=== PATIENT | female | born 1975 | race Caucasian/White ===

== ENCOUNTER → 2019-08-11 11:06 | Outpatient (CLI) | payer BC, SELFPAY ==
--- NOTE | ~2019-08-11 | MM_ITS ---
EXAMINATION: MM screening maeve BI w rozina HISTORY: Screening mammogram TECHNIQUE: Craniocaudal and mediolateral oblique 3-D tomosynthesis images were obtained and synthetic 2-D images were generated. CAD analysis was submitted and interpreted. COMPARISON: 07/05/2018 diagnostic right digital mammogram and limited right breast ultrasound 06/17/2018, 05/12/2017 bilateral digital screening mammogram examinations BREAST PARENCHYMAL COMPOSITION: There are scattered areas of fibroglandular density. FINDINGS: There is no evidence of suspicious mass, calcification, or architectural distortion to sugg est malignancy in either breast. There has been no suspicious interval change. IMPRESSION: 1. No mammographic evidence of malignancy. 2. Recommend routine screening mammography in one year. BI-RADS Category 1: Negative Reviewed, dictated and finalized at location A. 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
== END ==
PROVIDERS: PCP Physician Assistant; Visit Provider Nurse Practitioner
DX: Z12.31 Encounter for screening mammogram for malignant neoplasm of breast (principal)
CPT/HCPCS: 77063; 77067

== ENCOUNTER 2019-12-21 13:01 | Outpatient (CLI) | payer BC, SELFPAY ==
--- NOTE | ~2019-12-21 | XR_ITS ---
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 The procedure including the risks, benefits, and alternatives was discussed with the pat ient. Risks discussed included bleeding and infection. The patient understood the risks and agreed to proceed. The skin overlying the dorsal aspect of the right second tarsometatarsal joint joint was p repped and draped in usual sterile fashion. Anesthetic was administered with 1% lidocaine subcutaneo usly. A 22 G needle was advanced under fluoroscopic guidance into the joint. Injection of 0.4 mL of Omnipaque 240 confirmed intra-articular position of the needle. Subsequently, injectate consisting of 1 mL of a 40 mg/mL mixture of Kenalog for a total dose of 40 mg Kenalog was instilled. Washout of contrast was seen confirming intra-articular administration. The needle was removed and the entry sit e was cleaned and dressed. There were no immediate complications. Fluoroscopy exposure time was 0.5 minutes. The total number of images was 2. FINDINGS: Real-time fluoroscopy demonstrates the needle in the right second tarsal metatarsal joint. The injected contrast delineates communication between the second tarsal metatarsal joints and the mo re lateral tarsal metatarsal joints as well as into the navicular cuneiform joint the joint space bet ween the medial mid cuneiforms. Patient's pain prior to procedure:3/10. Patient's pain following the procedure: 3/10. IMPRESSION: 1. Accessory right second tarsal metatarsal joint steroid injection. Reviewed, dictated and finalized at location A.
== END 2019-12-21 13:02 | disposition home or self-care (01) ==
LOC: ANHIMG 13:06
PROVIDERS: PCP Physician Assistant; Visit Provider Podiatrist Foot & Ankle Surgery
DX: M19.071 Primary osteoarthritis, right ankle and foot (principal)
CPT/HCPCS: 20605; 77002; J3301; Q9966

== ENCOUNTER 2020-06-06 10:54 | Outpatient (CLI) | payer BC, SELFPAY ==
--- NOTE | ~2020-06-06 | XR_ITS ---
EXAMINATION: XR md joint inject/asp w image DATE: 06/06/2020 11:57 INDICATION: Right foot arthritis and pain TECHNIQUE: A time-out was performed to verify the patient's name, date of , and procedure to b e performed. The procedure including the risks, benefits, and alternatives was discussed with the pat ient. Risks discussed included bleeding and infection. The patient understood the risks and agreed to proceed. The skin overlying the dorsal midfoot was prepped and draped in usual sterile fashion. An esthetic was administered with 1% lidocaine subcutaneously. A 25 G needle was advanced under fluoros copic guidance into the joint. Injection of 0.3 mL of Omnipaque 240 confirmed intra-articular positi on of the needle. Subsequently 1 mL of 40 mg/mL Kenalog was instilled for a total dosage of 40 mg Ke nalog. Washout of contrast was seen confirming intra-articular administration. The needle was removed and the entry site was cleaned and dressed. There were no immediate complications. Fluoroscopy expo sure time was 0.3 minutes. The total number of images was 4. FINDINGS: Real-time fluoroscopy demonstrates the needle in the right second tarsal metatarsal joint. There appears to be communication with the first and third tarsal metatarsal joints and to the navicu lar cuneiform joint. IMPRESSION: 1. Successful right second tarsal metatarsal joint injection of steroid. Reviewed, dictated and finalized at location A. 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
== END 2020-06-06 10:55 | disposition home or self-care (01) ==
PROVIDERS: PCP Physician Assistant; Visit Provider Podiatrist Foot & Ankle Surgery
DX: M19.071 Primary osteoarthritis, right ankle and foot (principal)
CPT/HCPCS: 20605; 77002; J3301; Q9966

== ENCOUNTER → 2020-10-03 14:08 | Outpatient (CLI) | payer BC, SELFPAY ==
--- NOTE | ~2020-10-03 | MM_ITS ---
EXAMINATION: MM screening maeve BI w rozina HISTORY: Screening mammogram TECHNIQUE: Craniocaudal and mediolateral oblique 3-D tomosynthesis images were obtained and synthetic 2-D images were generated. CAD analysis was submitted and interpreted. COMPARISON: bilateral digital screening mammogram 1. 5 12/2018 diagnostic right digital mammogram and limited right breast ultrasound 06/17/2018 bilateral digital screening mammogram BREAST PARENCHYMAL COMPOSITION: There are scattered areas of fibroglandular density. FINDINGS: There is no evidence of suspicious mass, calcification, or architectural distortion to sugg est malignancy in either breast. There has been no suspicious interval change. IMPRESSION: 1. No mammographic evidence of malignancy. 2. Recommend routine screening mammography in one year. BI-RADS Category 1: Negative Reviewed, dictated and finalized at location A.
== END ==
PROVIDERS: PCP Physician Assistant; Visit Provider Nurse Practitioner
DX: Z12.31 Encounter for screening mammogram for malignant neoplasm of breast (principal)
CPT/HCPCS: 77063; 77067

== ENCOUNTER → 2021-12-11 16:20 | Outpatient (CLI) | payer BC, SELFPAY ==
--- NOTE | ~2021-12-11 | MM_ITS ---
EXAMINATION: MM screening maeve BI w rozina HISTORY: Screening TECHNIQUE: Craniocaudal and mediolateral oblique 3-D tomosynthesis images were obtained and synthetic 2-D images were generated. CAD analysis was submitted and interpreted. COMPARISON: Comparison to multiple prior studies sequentially, with oldest reviewed study dated 12/2015. BREAST PARENCHYMAL COMPOSITION: Breast composed of scattered areas of fibroglandular density FINDINGS: There is no evidence of suspicious mass, calcification, or architectural distortion to sugg est malignancy in either breast. There has been no suspicious interval change. IMPRESSION: 1. No mammographic evidence of malignancy. 2. Recommend routine screening mammography in one year. BI-RADS Category 1: Negative Reviewed, dictated and finalized at location A.
== END ==
PROVIDERS: PCP Obstetrics & Gynecology Gynecology; Visit Provider Obstetrics & Gynecology Gynecology
DX: Z12.31 Encounter for screening mammogram for malignant neoplasm of breast (principal)
CPT/HCPCS: 77063; 77067

== ENCOUNTER → 2022-03-06 16:33 | Outpatient (CLI) | payer OTHER, SELFPAY ==
--- NOTE | ~2022-03-06 | XR_ITS ---
EXAMINATION: XR lumbar spine 2-3V DATE: 03/06/2022 16:52 INDICATION: Low back pain TECHNIQUE: Anteroposterior and lateral views of the lumbar spine, and cone-down lateral view of the l umbosacral junction were obtained. COMPARISON: CT dated 10/06/2017 FINDINGS: 6 degrees lumbar dextrocurvature. Sagittal alignment is normal. Vertebral body heights are normal. Mi ld to moderate disc height loss at T9-T10 and T10-T11. Minimal to mild disc height loss at T11-T12, T 12-L1 and L2-L3. Mild bilateral sacroiliac and lower lumbar facet osteoarthritis. Moderate to large a mount of colonic stool. IMPRESSION: 1. 6 degrees lumbar dextrocurvature with minimal to mild spondylosis. Reviewed, dictated and finalized at location A.
== END ==
PROVIDERS: PCP Physician Assistant; Visit Provider Physician Assistant
DX: M47.896 Other spondylosis, lumbar region (principal)
CPT/HCPCS: 72100

== ENCOUNTER 2022-05-24 09:44 | Emergency (ER) | payer OTHER, SELFPAY ==
[2022-05-24 09:56] VITALS: BP 124/75; PULSE 84; RESP 18; TEMP 36.2; O2SAT 100
--- NOTE | 2022-05-24 11:12 | ED.URI ---
HPI - URI/Sore Throat General Chief Complaint: Upper Respiratory Infection Stated Complaint: Cough Time Seen by Provider: 05/24/22 11:12 Source: patient and RN notes reviewed Mode of arrival: ambulatory Limitations: no limitations History of Present Illness HPI Narrative: 47 y/o female presented for c/o sinus congestion for 4 days. Endorses pain with coughing last night. endorses coughing up buckley sputum. Denies wheezing, sob, n/v/d/f/c. Taking mucinex and Cold& Sinus med for symptoms. MD elicited complaint: cough Related Data Home Medications Medication Instructions Recorded Confirmed bupropion HCl 300 mg 24 hr tablet, 300 mg PO DIRECTED 05/24/22 05/24/22 extended release cyanocobalamin (vitamin B-12) 500 500 mcg intranasal DIRECTED 05/24/22 05/24/22 mcg/spray nasal spray (Nascobal) escitalopram oxalate 20 mg tablet 20 mg PO DAILY 05/24/22 05/24/22 methocarbamol 750 mg tablet 750 mg PO DIRECTED 05/24/22 05/24/22 topiramate 100 mg tablet 100 mg PO DIRECTED 05/24/22 05/24/22 zolpidem 6.25 mg tablet,extended 6.25 mg PO DAILY 05/24/22 05/24/22 release,multiphase Allergies Allergy/AdvReac Type Severity Reaction Status Date / Time No Known Allergies Allergy Verified 05/24/22 10:13 Review of Systems Review of Systems: CONSTITUTIONAL: denies malaise, chills, sweats, fever EYES: Denies visual changes, redness, or discharge ENT: Reports rhinorrhea, congestion, sinus pain, denies otalgia, sore throat CARDIOVASCULAR: Denies chest pain, palpitations, edema RESPIRATORY: Reports cough, post nasal drainage. Denies dyspnea GASTROINTESTINAL: Denies abdominal pain, vomiting, diarrhea SKIN: Denies rash or itching MUSCULOSKELETAL:denies myalgia NEUROLOGIC: Denies headache PMFSH Family History Family History Father Hypertension Mother Carcinoma of colon Other Diabetes mellitus Family history of arthritis Family history of malignant neoplasm Social History Social History Smoking status: Never smoker Alcohol intake: never Exam Narrative: GENERAL: Ill-appearing, nontoxic EYES: PERRLA, conjunctivae clear ENT: Mucous membranes moist. TM pearly buckley with dull light reflex bilaterally; Right TM with tube in place; no tragal tenderness. Oropharynx erythematous without lesions or exudate, no drooling, no hoarseness, no trismus, uvula midline. No tripod positioning, muffled voice, soft palate or pharyngeal wall bulging NECK: Supple. No lymphadenopathy CHEST: Clear to auscultation, breath sounds equal. No wheezing, rhonchi, rales, or stridor. No respiratory distress, speaks in full sentences. HEART: Regular rate and rhythm. No murmur heard. SKIN: Warm, dry, no rash. NEURO: Alert and oriented x3. PSYCH: Normal mood and affect Course Course Emergency Course: Patient is aware of diagnosis, understands and agrees to treatment plan. Anticipatory guidance given. Patient agrees to follow-up as directed and is aware of reasons to seek care at the emergency department. Portions of this record may have been created with voice recognition software Level of Care: Express Care Visit Vital Signs Vital signs: Vital Signs Temperature 97.2 F L 05/24/22 09:56 Pulse Rate 84 05/24/22 09:56 Respiratory Rate 18 05/24/22 09:56 Blood Pressure 124/75 05/24/22 09:56 Pulse Oximetry 100 05/24/22 09:56 Oxygen Delivery Room Air 05/24/22 09:56 Temperature 97.2 F L 05/24/22 09:56 Pulse Rate 84 05/24/22 09:56 Respiratory Rate 18 05/24/22 09:56 Blood Pressure 124/75 05/24/22 09:56 Pulse Oximetry 100 05/24/22 09:56 Oxygen Delivery Room Air 05/24/22 09:56 reviewed MDM - URI/Sore Throat MDM Narrative Medical decision making narrative: Advised supportive measures and signs/symptoms to go to the ER. Pt is appropriate for outpt treatment and f/u. Differential Diagn
== END 2022-05-24 11:25 | disposition home or self-care (01) ==
PROVIDERS: Emergency Provider Nurse Practitioner Family; PCP Physician Assistant
DX: J06.9 Acute upper respiratory infection, unspecified (principal)
CPT/HCPCS: 99213; G0463

== ENCOUNTER 2023-03-31 15:15 | Outpatient (CLI) | payer OTHER, SELFPAY ==
--- NOTE | ~2023-03-31 | MM_ITS ---
EXAMINATION: MM screening maeve BI w rozina HISTORY: Screening mammogram, family history of breast cancer in her mother. TECHNIQUE: Craniocaudal and mediolateral oblique 3-D tomosynthesis images were obtained and synthetic 2-D images were generated. CAD analysis was submitted and interpreted. COMPARISON: 12/11/2021, 10/03/2020, 08/11/2019 BREAST PARENCHYMAL COMPOSITION: There are scattered areas of fibroglandular density. FINDINGS: No suspicious mass, calcification, or architectural distortion are identified in either kierra ast to suggest malignancy. There has been no suspicious interval change. IMPRESSION: 1. No mammographic evidence of malignancy. 2. Recommend routine screening mammography in one year. BI-RADS Category 1: Negative Reviewed, dictated and finalized at location A.
== END 2023-03-31 15:16 | disposition home or self-care (01) ==
PROVIDERS: PCP Physician Assistant; Visit Provider Obstetrics & Gynecology Gynecology
DX: Z12.31 Encounter for screening mammogram for malignant neoplasm of breast (principal)
CPT/HCPCS: 77063; 77067

== ENCOUNTER 2024-01-13 10:41 | Outpatient (CLI) | payer BC, SELFPAY ==
--- NOTE | ~2024-01-13 | CT_ITS ---
CT of the Abdomen and Pelvis: Indication: Abdominal pain Technique: 2.5 mm axial scans were obtained through the abdomen and pelvis following intravenous adm inistration of 100 cc of Omnipaque 350. Dose reduction technique was used on this scan by utilizing a utomated exposure control and iterative reconstruction technique. The dose-length product (DLP) was 4 63.84 mGy-cm. COMPARISON: 10/06/2017 Findings: Scans through the lung bases demonstrates stable area of probable air trapping at the left lung base with probable impacted bronchus. The liver, spleen, pancreas, gallbladder, adrenals and kidneys are within normal limits. No evidence of aortic aneurysm. No lymphadenopathy. No bowel obstruction or bowel wall thickening. There is no evidence to suggest acute appendicitis. Images through the pelvis were performed. Urinary bladder unremarkable. No adnexal mass seen. No asci lance. Impression: No acute abnormality seen. No air trapping in the left lower lobe with impacted left lower lobe bronchus, similar to prior exam. Reviewed, dictated and finalized at [facility]. Impression: No acute abnormality seen. No air trapping in the left lower lobe with impacted left lower lobe bronchus, similar to prior exam.
== END 2024-01-13 10:42 ==
LOC: MICIMG 10:42
DX: R10.32 Left lower quadrant pain (principal)
CPT/HCPCS: 74177; Q9967

== ENCOUNTER 2024-04-08 03:28 | Day surgery (SDC) | payer BC, SELFPAY ==
[2024-03-21 13:53] VITALS: BMI 27.3
[2024-04-08 07:21] VITALS: BP 116/70; PULSE 76; RESP 20; TEMP 36.6; O2SAT 100; BMI 27.1
[2024-04-08] MEDS: LACTATED RINGERS 1,000 ML 150 ML IV CONT (07:29)
--- NOTE | 2024-04-08 08:14 | PM.HPGS ---
History of Present Illness History of Present Illness Consent: Risks, benefits, and alternatives have been discussed and questions answered. Patient agrees to proceed with procedure. Chief complaint: Epigastric pain, Nausea, GERD Narrative: Rosa Yao is a 49 year old female with nausea and gerd, improved after omeprazole increased to bid Review of Systems Review of Systems: All systems reviewed & are unremarkable except as noted in HPI and below PMFSH Family History Family History Father Hypertension Mother Carcinoma of colon Other Diabetes mellitus Family history of arthritis Family history of malignant neoplasm Social History Social History Smoking status: Never smoker Alcohol intake: never Substance use: current Substance use type: marijuana Other substance usage details: Marijuana daily Living arrangements: with family Spiritual care concerns: No Meds Home Medications and Allergies Home Medications Medication Instructions Recorded Confirmed Type bupropion HCl 300 mg 24 hr tablet, 300 mg PO DAILY 05/24/22 04/08/24 History extended release escitalopram oxalate 20 mg tablet 20 mg PO DAILY 05/24/22 04/08/24 History topiramate 100 mg tablet 100 mg PO DAILY 05/24/22 04/08/24 History zolpidem 6.25 mg tablet,extended 6.25 mg PO DAILY 05/24/22 04/08/24 History release,multiphase omeprazole 40 mg capsule,delayed 40 mg PO BID #60 caps 02/25/24 04/08/24 Rx release Vitamin D3 1 tablet PO DAILY 03/21/24 04/08/24 History cyanocobalamin (vitamin B-12) 100 100 mcg WEEKLY 03/21/24 04/08/24 History mcg/mL injection syringe folic acid 1 mg tablet 1 mg PO DAILY 03/21/24 04/08/24 History levothyroxine 50 mcg tablet 50 mcg PO DAILY 03/21/24 04/08/24 History Allergies Allergy/AdvReac Type Severity Reaction Status Date / Time No Known Allergies Allergy Verified 04/08/24 07:19 Vital Signs Vital Signs - 24 hr 04/08/24 07:21 Temperature 97.8 F Pulse Rate 76 Respiratory Rate 20 Blood Pressure 116/70 Pulse Oximetry 100 Oxygen Delivery Room Air Exam Const: General: comfortable and no acute distress HENMT: Face/Nose/Sinus: Normal nares present Eyes: General: appearance normal, both eyes and all related structures Neck: Neck: no JVD Resp: Auscultation: clear to auscultation bilaterally Cardio: Rate: regular rate Rhythm: regular rhythm GI: Inspection: non-distended GI Palp: Yes Soft to palpation Skin: General skin exam: normal color Neuro: General: gait normal Speech: normal speech Extrem: General: normal to inspection Psych: Mental Status: mental status grossly normal Assessment and Plan Assessment and plan (1) GERD (gastroesophageal reflux disease): Code(s): K21.9 - Gastro-esophageal reflux disease without esophagitis Status: Acute Assessment and Plan: egd with bx (2) Nausea: Code(s): R11.0 - Nausea Status: Acute
[2024-04-08 08:27] VITALS: BP 100/99; PULSE 67; RESP 17; O2SAT 100
[2024-04-08 08:35] VITALS: BP 100/97; PULSE 67; RESP 17; O2SAT 100
[2024-04-08 08:47] VITALS: BP 113/61; PULSE 69; RESP 20; O2SAT 100
== END 2024-04-08 08:48 | disposition home or self-care (01) ==
PROVIDERS: Referring Provider Nurse Practitioner; Visit Provider Internal Medicine Gastroenterology
PROC: 0DJ08ZZ Inspection of Upper Intestinal Tract, Via Natural or Artificial Opening Endoscopic (ICD-10-PCS; CPT 43235; principal; 2024-04-08 08:30)
DX: K21.9 Gastro-esophageal reflux disease without esophagitis (principal); F12.90 Cannabis use, unspecified, uncomplicated; Z80.0 Family history of malignant neoplasm of digestive organs
CPT/HCPCS: 43239; 88305; J2003; J2704; J7120

== ENCOUNTER 2024-06-09 07:40 | Outpatient (CLI) | payer BC, SELFPAY ==
--- NOTE | ~2024-06-09 | MM_ITS ---
EXAMINATION: MM screening maeve BI w rozina HISTORY: Screening TECHNIQUE: Craniocaudal and mediolateral oblique 3-D tomosynthesis images were obtained and synthetic 2-D images were generated. CAD analysis was submitted and interpreted. COMPARISON: Comparison to multiple prior studies sequentially, with oldest reviewed study dated 05/30. BREAST PARENCHYMAL COMPOSITION: Not dense: There are scattered areas of fibroglandular density. FINDINGS: There is no evidence of suspicious mass, calcification, or architectural distortion to sugg est malignancy in either breast. There has been no suspicious interval change. IMPRESSION: 1. No mammographic evidence of malignancy. 2. Recommend routine screening mammography in one year. BI-RADS Category 1: Negative Reviewed, dictated and finalized at location B. 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
== END 2024-06-09 07:41 | disposition home or self-care (01) ==
PROVIDERS: Visit Provider Nurse Practitioner
DX: Z12.31 Encounter for screening mammogram for malignant neoplasm of breast (principal)
CPT/HCPCS: 77063; 77067